=== PATIENT | female | born 2000 | race Caucasian/White ===

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

== ENCOUNTER 2020-11-14 05:35 | Day surgery (SDC) | payer BC ==
[~2020-11-14] VITALS: Ht 162.6 cm; Wt 77.3 kg
[2020-11-14] VITALS (7 sets, daily range): BP systolic 126–140; BP diastolic 70–85; PULSE 85–109; TEMP 98.1
[~2020-11-14 05:35] MED LIST changes: +MACROBID 1100 MG/CAP PO
[2020-11-14 06:18] LABS: BASO # 0.1 (0.0-0.2); BASO % 0.6 % (0.0-2.0); EOS # 0.6 (0.0-0.7); EOS % 4.4 % (0-4.0); GRAN # 9.4 (1.4-6.5); HEMATOCRIT 40.7 % (35.0-45.0); HEMOGLOBIN 12.8 g/dl (12.0-15.0); LYMPH # 1.8 (1.2-3.4); LYMPH % 14.6 % (20.0-51.0); MEAN CELL VOLUME 84 fl (80.0-95.0); MEAN CORPUSCULAR HEMOGLOBIN 26 pg (26.0-32.0); MEAN CORPUSCULAR HGB CONC 31 g/dl (33.0-37.0); MEAN PLATELET VOLUME 10.3 fl (7.4-10.4); MONO # 0.7 (0.1-0.6); MONO % 5.2 % (1.7-9.3); PLATELET COUNT 309 K/mm3 (130-400); RED BLOOD COUNT 4.84 M/mm3 (4.10-5.30); REDCELL DISTRIBUTION WIDTH-CV 13.2 % (11.5-14.5)
[2020-11-14 06:22] LABS: COLLECTION METHOD CLEAN CATCH
[2020-11-14 06:29] LABS: MUCOUS Present /lpf; PH 5 (5-8); SQUAMOUS EPITHELIAL 0-2 /hpf; URINE APPEARANCE Hazy; URINE BACTERIA None Seen /hpf; URINE BILIRUBIN Negative (NEGATIVE); URINE BLOOD Negative (NEGATIVE); URINE COLOR Yellow; URINE GLUCOSE Negative (NEGATIVE); URINE KETONE Negative (NEGATIVE); URINE LEUKOCYTE ESTERASE Negative (NEGATIVE); URINE NITRATE Negative (NEGATIVE); URINE PROTEIN(semi-quant) Negative (NEGATIVE); URINE RBC 0-2 /hpf; URINE UROBILINOGEN Negative (NEGATIVE)
[2020-11-14 06:46] LABS: ALBUMIN 4.5 gm/dL (3.5-5.0); BILIRUBIN,TOTAL 0.4 mg/dL (0.0-1.0); CALCIUM 9.5 mg/dL (8.4-10.2); CREATININE, serum 0.61 (0.52-1.25); POTASSIUM 3.9 mmol/L (3.4-5.0); TOTAL PROTEIN 7.3 gm/dL (6.4-8.2)
--- NOTE | 2020-11-14 12:50 | NUR ---
Patient to room from PACU via bed. Alert and oriented x4. Denies pain. Lap sites x4 to abd with all edges well approximated, glue intact, no redness/swelling/discharge. Patient not too hungry, will provide jello and water. Oriented to room.
--- NOTE | 2020-11-14 12:58 | NUR ---
Patient was advised that I spoke with the pharmacist regarding medications and dye that she received as she is and that they recommend that she pump and dump for the next 24 hours. Patient verbalizes understanding.
--- NOTE | 2020-11-14 14:08 | NUR ---
Patient lying in bed with eyes closed, opens eyes when name called out. Denies pain. Is tolerating jello without difficulty. Declines any other food at this time. Says that she still feels sleepy. Denies additional needs at this time.
--- NOTE | 2020-11-14 15:13 | NUR ---
Patient provided with a breast pump at this time. Sitting up in bed. Denies additional needs.
--- NOTE | 2020-11-14 15:49 | NUR ---
Patient doing well, denies complaints. Says that this procedure is a lot easier and less painful than a . Patient is ready to be discharged, is letting family know that they can come to pick her up at the ER entrance.
--- NOTE | 2020-11-14 16:12 | NUR ---
Review all discharge instructions with the patient. Denies questions and signs discharge paperwork. Discharge packet provided to the patient. Patient's ride is at ER to pick her up. This nurse assists patient out to POV with all belongings.
== END 2020-11-14 16:08 | disposition home or self-care (01) ==
LOC: COL.ER 05:35 → SURG 09:33 → SDCO 09:33 → COL.ER 10:40 → EDBEDREQ 11:13 → SURG 12:50 → SDCO 16:08
PROVIDERS: Family Medicine
DX: K80.12 Calculus of gallbladder with acute and chronic cholecystitis without obstruction (principal); Z88.8 Allergy status to other drugs, medicaments and biological substances; J45.909 Unspecified asthma, uncomplicated
CPT/HCPCS: OP; J0690; J0696; J1100; J2250; J2405; J2704; J3010; J7030